=== PATIENT | male | born 1980 | race Caucasian/White ===

== ENCOUNTER 2018-11-26 17:31 | Emergency (ER) | payer SELFPAY ==
[~2018-11-26] VITALS: Ht 175.3 cm; Wt 68.0 kg
[~2018-11-26 17:31] MED LIST: SULF1TAB35 PO; SULF1TAB38 PO
--- OUTSIDE RECORDS SUMMARY | 2018-11-26 17:37 | XMS REPORT ---
Author Author DOUG TAM Organization [facility] Address [address] [place] [address] Care Team Providers Care Practice Billing Associate Name Role Phone DOUG TAM Unavailable PROBLEMS Type Condition ICD9-CM Code [id number] Code Onset Dates Condition Status SNOMED Code Problem Contusion of chest wall 922.1 Active 52903056 ALLERGIES No Known Allergies ENCOUNTERS Encounter Location Date Diagnosis [facility] [address] [facility] [id number] [address] Aug, Viral syndrome B34.9 [facility] [address] [facility] [id number] [address] Jan, IMMUNIZATIONS No Known Immunizations SOCIAL HISTORY Never Assessed REASON FOR VISIT Vomiting, Not a SD acute. PT was sick a few days ago but a runny nose and weak today-[facility] PLAN OF CARE VITAL SIGNS Weight 143.6 lbs 2017-08-21 Temperature 98.2 degrees Fahrenheit 2017-08-21 Heart Rate 84 bpm 2017-08-21 Respiratory Rate 20 2017-08-21 Blood pressure systolic 124 mmHg 2017-08-21 Blood pressure diastolic 72 mmHg 2017-08-21 MEDICATIONS Medication Instructions Dosage Frequency Start Date End Date Duration Status PredniSONE 20 mg Orally Once a day 2 tablets 24h Aug, Aug, 05 days Active Zofran ODT 4 MG Orally every 8 hrs 1 tablet on the tongue and allow to dissolve 8h Aug, Active RESULTS No Results PROCEDURES No Known procedures INSTRUCTIONS MEDICATIONS ADMINISTERED No Known Medications MEDICAL (GENERAL) HISTORY Type Description Date Surgical History left arm repair 1999
--- OUTSIDE RECORDS SUMMARY | 2018-11-26 17:37 | XMS REPORT | Continuity of Care Document ---
Demographics Preferred Language Unknown Marital Status Unknown [employer] Affiliation Unknown Race Unknown Ethnic Group Unknown Author Organization Unknown Address Unknown Allergies There is no data. Medications There is no data. Problems Date Dx Coded Attending Type Code Diagnosis Diagnosed By 01/27/2013 922.1 CONTUSION OF CHEST WALL Procedures Code [place] [address] XRAY RIBS RIGHT UNILATERAL 2 OR MORE VIEWS 01/27/2013 05216 XRAY SCAPULA RIGHT COMPLETE 01/27/2013 76586 XRAY SHOULDER RIGHT COMP 2 VIEWS 01/27/2013 Results There is no data. Encounters ACCT No. Visit Date/Time Discharge Status Pt. Type Provider Facility Loc./Unit Complaint [id number] 01/27/2013 14:53:00 Document Registration [id number] 09/27/2018 14:15:00 09/27/2018 23:59:59 [facility]
[2018-11-26 17:54] VITALS: BP 134/83
--- NOTE | 2018-11-26 17:58 | ED Upper Extremity ---
General Chief Complaint: Upper Extremity Stated Complaint: R HAND SWELLING Nursing Triage Note: PATIENT AMBULATORY TO ER WITH COMPLAINT OF ABSCESS TO RIGHT HAND. PATIENT STATES THIS STARTED APPROXIMATELY 2 DAYS AGO AND GOTTEN WORSE. PATIENT STATES ABSCESS HAS BEEN DRAINING PURELENT FLUIDS FROM WOUND. HE DENIES ANY RECENT INJURIES TO HAND. PATIENT HAS REDNESS STREAKING UP RIGHT ARM. THERE IS AN OPEN WOUND PRESENT TO RIGHT HAND THAT PATIENT STATES HAS BEEN THERE FOR MONTHS. Nursing Sepsis Screen: No Definite Risk Source: patient Exam Limitations: no limitations History of Present Illness Date Seen by Provider: Nov 26, 2018 Time Seen by Provider: 17:53 Initial Comments This 38-year-old white male presents with a developing abscess over the dorsum of his right hand over the last 2 days. The patient denies any recent injury to the area. He is concerned because of the red streaks that are ascending his forearm. Patient is complaining of sharp pain in the area. He denies fever, chills, similar lesion elsewhere, or similar lesions in the past. Allergies and Home Medications Allergies Coded Allergies: No Known Drug Allergies (Unverified , 11/26/18) Patient Home Medication List Home Medication List Reviewed: Yes Review of Systems Constitutional: No chills, No fever EENTM: No ear pain, No vision loss Respiratory: No cough Cardiovascular: No chest pain Gastrointestinal: No abdominal pain, No nausea, No vomiting Genitourinary: no symptoms reported Musculoskeletal: no symptoms reported Skin: see HPI, other (cellulitis with possible abscess right hand) Psychiatric/Neurological: No Symptoms Reported Past Niglkga-Rfkzea-Nahjfj Hx Past Med/Social Hx: Reviewed Nursing Past Med/Soc Hx Patient Social History Alcohol Use: Past History Recreational Drug Use: No Smoking Status: Current Everyday Smoker Type Used: Cigarettes 2nd Hand Smoke Exposure: Yes Recent Foreign Travel: No Contact w/Someone Who Travel: No Recent Infectious Disease Expo: No Recent Hopitalizations: No Immunizations Up To Date Tetanus Booster (TDap): More than 5yrs PED Vaccines UTD: Yes Seasonal Allergies Seasonal Allergies: No Past Medical History Surgeries: Yes (LEFT ARM REPAIR, RIGHT HAND) Respiratory: No Cardiac: No Neurological: No Genitourinary: No Gastrointestinal: No Musculoskeletal: No Endocrine: No HEENT: No Cancer: No Psychosocial: No Integumentary: No Physical Exam Vital Signs Vital Signs - First Documented 11/26/18 17:34 Temp 98.2 Pulse 106 Resp 16 B/P (MAP) 134/83 (100) Pulse Ox 94 O2 Delivery Room Air Capillary Refill : Less Than 3 Seconds Height, Weight, BMI Height: 5'9.00" Weight: 150lbs. oz. 68.146026ir; BMI Method:Stated General Appearance: WD/WN, no apparent distress HEENT: normal ENT inspection Neck: normal inspection Cardiovascular: regular rate, rhythm Respiratory: lungs clear Gastrointestinal: normal bowel sounds, non tender, soft Back: normal inspection Shoulder: normal inspection Elbow/Forearm: normal inspection, Right Wrist: Yes normal inspection Hand: Right, soft tissue tenderness (possible abscess over the dorsum of the right hand over the ring finger metacarpal.), swelling Neurologic/Tendon: normal sensation, normal motor functions Neurologic/Psychiatric: no motor/sensory deficits, alert, normal mood/affect Skin: normal color, warm/dry, other (abscess right hand) Progress/Results/Core Measures Results/Orders My Orders Orders - RAVIN PINA MD Wound Culture (11/26/18 17:51) Vital Signs/I&O 11/26/18 17:34 Temp 98.2 Pulse 106 Resp 16 B/P (MAP) 134/83 (100) Pulse Ox 94 O2 Delivery Room Air Blood Pressure Mean: 100 Progress Progress Note : Time: 17:56 Progress Note After discussion of the risks and benefits for the patient and with the patient' s agreement, the potential abscess over the dorsum of the right hand was incised and drained with number 11 blade. A large amount of blood was expressed. There is no clear abscess noted. A culture and sensitivity was obtained. Departure Impression Primary Impression: Abscess of right hand Disposition: 01 HOME, SELF-CARE Condition: Improved Departure-Patient Inst. Decision time for Depature: 17:57 Referrals: [facility] (PCP/Family) Primary Care Physician Patient Instructions: Abscess Incision and Drainage Add. Discharge Instructions: Bactrim and Vicodin as prescribed. Close follow-up. Health on Thursday. Soak in warm soapy water twice a day. Return if any problems or questions. All discharge instructions reviewed with patient and/or family. Voiced understanding. Scripts Sulfamethoxazole/Trimethoprim (Bactrim Ds Tablet) 1 Each Tablet 1 EACH PO BID, #20 TAB Prov: RAVIN PINA MD 11/26/18 Hydrocodone/Acetaminophen (Vicodin 5-300 mg Tablet) 1 Each Tablet 1-2 EACH PO Q6H PRN for PAIN-MODERATE MDD 10, #20 TAB Prov: RAVIN PINA MD 11/26/18 RAVIN PINA MD Nov 26, 2018 17:58
[2018-11-26] MEDS ORDERED: SULF1TAB35 PO (17:59)
[2018-11-26] MEDS ORDERED: HYDR-3455 PO (17:59)
== END 2018-11-26 18:02 | disposition home or self-care (01) ==
LOC: EDUNIT# 17:31 → ER 17:33
DX: L02.511 Cutaneous abscess of right hand (principal); F17.210 Nicotine dependence, cigarettes, uncomplicated
CPT/HCPCS: 10060; 87070; 87077; 87205

== ENCOUNTER 2019-01-19 19:49 | Emergency (ER) | payer SELFPAY ==
[~2019-01-19] VITALS: Ht 175.3 cm; Wt 77.1 kg
[~2019-01-19 19:49] MED LIST changes: +HYDR-3455 PO
--- OUTSIDE RECORDS SUMMARY | 2019-01-19 19:53 | XMS REPORT | Continuity of Care Document ---
Demographics Preferred Language Unknown Marital Status Unknown Sabianism Affiliation Unknown Race Unknown Ethnic Group Unknown Author Organization Unknown Address Unknown Allergies There is no data. Medications There is no data. Problems Date Dx Coded Attending Type Code Diagnosis Diagnosed By 01/27/2013 922.1 CONTUSION OF CHEST WALL Procedures Code [place] [address] XRAY RIBS RIGHT UNILATERAL 2 OR MORE VIEWS 01/27/2013 14990 XRAY SCAPULA RIGHT COMPLETE 01/27/2013 85904 XRAY SHOULDER RIGHT COMP 2 VIEWS 01/27/2013 Results There is no data. Encounters ACCT No. Visit Date/Time Discharge Status Pt. Type Provider Facility Loc./Unit Complaint [id number] 01/27/2013 14:53:00 Document Registration [id number] 09/27/2018 14:15:00 09/27/2018 23:59:59 [facility]
[2019-01-19] MEDS ORDERED: TRIM/SULFAMETH 160/800 (SEPTRA DS) TAB PO ONE (20:00)
--- NOTE | 2019-01-19 20:10 | NUR ---
CX OBTAINED FROM LEFT LEG ABSCESS.
--- NOTE | 2019-01-19 20:27 | ED Lower Extremity ---
General Chief Complaint: Lower Extremity Stated Complaint: L LEG PAIN Source: patient Exam Limitations: no limitations History of Present Illness Date Seen by Provider: Jan 19, 2019 Time Seen by Provider: 20:00 Initial Comments 38-year-old male who presents to the emergency room with complaints of a area of redness and draining to his left inner leg just below the knee that he believes is a spider bite. He reports his had the wound the past 4 days and recently came to head when he popped. The wound is draining on arrival to the emergency room. Has surrounding erythema. Onset: just prior to arrival Pain/Injury Location: left leg Allergies and Home Medications Allergies Coded Allergies: No Known Drug Allergies (Unverified , 11/26/18) Home Medications Hydrocodone/Acetaminophen 1 Each Tablet, 1-2 EACH PO Q6H PRN for PAIN-MODERATE Prescribed by: RAVIN PINA MD on 11/26/181758 Sulfamethoxazole/Trimethoprim 1 Each Tablet, 1 EACH PO BID Prescribed by: RAVIN PINA MD on 11/26/181758 Sulfamethoxazole/Trimethoprim 1 Each Tablet, 1 EACH PO BID Prescribed by: SANDI AVENDANO on 01/19/192042 Patient Home Medication List Home Medication List Reviewed: Yes Review of Systems Constitutional: see HPI; No chills, No fever Skin: see HPI, other (redness and drainage to left leg) All Other Systems Reviewed Negative Unless Noted: Yes Past Eozkvao-Twbcdo-Lpscci Hx Past Med/Social Hx: Reviewed Nursing Past Med/Soc Hx Patient Social History Type Used: Cigarettes 2nd Hand Smoke Exposure: Yes Recent Foreign Travel: No Contact w/Someone Who Travel: No Recent Hopitalizations: No Immunizations Up To Date Tetanus Booster (TDap): More than 5yrs PED Vaccines UTD: Yes Seasonal Allergies Seasonal Allergies: No Past Medical History Surgeries: Yes (LEFT ARM REPAIR, RIGHT HAND) Respiratory: No Cardiac: No Neurological: No Genitourinary: No Gastrointestinal: No Musculoskeletal: No Endocrine: No HEENT: No Cancer: No Psychosocial: No Integumentary: No Family Medical History Reviewed Nursing Family Hx Physical Exam Vital Signs Vital Signs - First Documented 01/19/19 01/19/19 19:55 20:50 Temp 98.2 Pulse 111 Resp 18 B/P (MAP) 136/94 (108) Pulse Ox 98 Capillary Refill : Height, Weight, BMI Height: 5'9.00" Weight: 150lbs. oz. 68.076923wd; BMI Method:Stated General Appearance: WD/WN, no apparent distress Cardiovascular: normal peripheral pulses, regular rate, rhythm, no edema, no gallop, no JVD, no murmur Respiratory: chest non-tender, lungs clear, normal breath sounds, no respiratory distress, no accessory muscle use Neurologic/Psychiatric: alert, normal mood/affect, oriented x 3 Skin: normal color, warm/dry, other Progress/Results/Core Measures Results/Orders Micro Results Microbiology 01/19/19 Gram Stain - Final, Resulted 01/19/19 Wound Culture - Preliminary, Resulted Staphylococcus aureus My Orders Orders - SANDI AVENDANO Sulfamethoxazole/Trimet Ds Tab (Bactrim (01/19/19 20:00) Wound Culture (01/19/19 20:00) Medications Given in ED Vital Signs/I&O 01/19/19 01/19/19 19:55 20:50 Temp 98.2 98.2 Pulse 111 100 Resp 18 18 B/P (MAP) 136/94 (108) 135/92 (106) Pulse Ox 98 Departure Impression Primary Impression: Skin abscess Disposition: HOME, SELF-CARE Condition: Stable/Unchanged Departure-Patient Inst. Decision time for Depature: 20:42 Referrals: [facility] (PCP/Family) Primary Care Physician Patient Instructions: Skin Abscess Add. Discharge Instructions: Continue to let the wound drain in change the dressing daily. Take medication as directed. Be sure to complete the entire course of your antibiotics. You may use ibuprofen and Tylenol as directed by the bottle for pain relief. Your primary care provider within 1 week for recheck. Return back to the emergency room for worsening symptoms or concerns as needed. All discharge instructions reviewed with patient and/or family. Voiced understanding. Scripts Sulfamethoxazole/Trimethoprim (Bactrim Ds Tablet) 1 Each Tablet 1 EACH PO BID for 7 Days, #14 TAB Prov: SANDI AVENDANO 01/19/19 SANDI AVENDANO Jan 19, 2019 20:27
[2019-01-19] MEDS ORDERED: SULF1TAB35 PO (20:43)
[2019-01-19 20:50] VITALS: BP 135/92
== END 2019-01-19 20:51 | disposition home or self-care (01) ==
LOC: EDUNIT# 19:49 → ER 19:50
DX: L02.416 Cutaneous abscess of left lower limb (principal); Z77.22 Contact with and (suspected) exposure to environmental tobacco smoke (acute) (chronic)
CPT/HCPCS: 87070; 87077; 87186; 87205